=== PATIENT | female | born 1975 | race Caucasian/White ===

== ENCOUNTER → 2018-02-23 | Outpatient (CLI) | payer OTHER ==
--- NOTE | 2018-02-24 11:27 | RADIOLOGY IMAGING REPORT ---
FACILITY: [facility] [place] PATIENT NAME: LIVE LEE : [id number] MR: [id number] V: [id number] EXAM DATE: [id number] ORDERING PHYSICIAN: YARY JOHN TECHNOLOGIST: Hailey England PROCEDURE:BILATERAL DIGITAL SCREENING MAMMOGRAM WITH CAD ASSISTED INTERPRETATION & 3D TOMOSYNTHESIS COMPARISON:None. INDICATIONS:screening FINDINGS: Dense heterogeneous fibroglandular tissue is seen throughout the breasts. There is a cluster of round calcifications in the upper outer quadrant of the Right breast. Spot magnification view is recommended for further evaluation. There is also a focal area of increased density in the upper portion of the Left breast in the posterior 1/3 for which Spot compression view is recommended. DIAGNOSTIC CATEGORY 0--INCOMPLETE: NEED ADDITIONAL IMAGING EVALUATION. RECOMMENDATIONS: ADDITIONAL MAMMOGRAPHIC VIEWS REQUIRED: BILATERAL BREASTS. IMPRESSION: BIRADS 0: Incomplete. Additional views of both breasts recommended as described. Dictated by: Erendira Beasley M.D. on 02/23/2018 at 16:22 Transcribed by: NICANOR on 02/24/2018 at 7:58 Approved by: Erendira Beasley M.D. on 02/24/2018 at 11:27 [facility]
== END ==
LOC: MAMO 06:55
PROVIDERS: ATTEND Physician Assistant
DX: Z12.31 Encounter for screening mammogram for malignant neoplasm of breast (principal); R92.8 Other abnormal and inconclusive findings on diagnostic imaging of breast
CPT/HCPCS: 77063; 77067

== ENCOUNTER → 2018-03-14 | Outpatient (CLI) | payer OTHER ==
[~2018-03-14] MED LIST: IBUP800T37 PO; PER PO
--- NOTE | 2018-03-27 14:53 | RADIOLOGY IMAGING REPORT ---
FACILITY: [facility] PATIENT NAME: LIVE LEE : [id number] MR: [id number] V: [id number] EXAM DATE: [id number] ORDERING PHYSICIAN: YARY JOHN TECHNOLOGIST: Sara Cummings PROCEDURE:BILATERAL DIAGNOSTIC DIGITAL MAMMOGRAM AND LEFT BREAST ULTRASOUND. COMPARISON:None. INDICATIONS:FURTHER EVAL HISTORY: Indeterminate microcalcifications upper outer quadrant Right breast. Potential mass vs. island of glandular tissue Left axillary tail. Additional history: In discussion with this patient she has a very strong family history of breast cancer. Her sister was diagnosed at age 25 and 2 maternal aunts were diagnosed in their 20's or 30's. FINDINGS: The breast parenchyma is dense. Right breast: Spot compression magnification views were performed in the CC and mediolateral projections. There is a loose grouping of mildly pleomorphic microcalcifications located 10 o'clock Right breast Zone 2. There are no microcalcifications seen in the contralateral breast. These are moderately suspicious and warrant Stereotactic biopsy. Left breast: Left MLO Spot compression view, XCC view, and mediolateral view were performed. There is a persistent asymmetry measuring approximately 3.5 x 2.0cm diameter. The appearance favors an island of glandular tissue. Ultrasound over this area is completely normal with the exception of several tiny cysts. Normally I would recommend routine annual screening of Left breast but given the patient's family history a 6 month follow-up Left breast mammogram would be performed. DIAGNOSTIC CATEGORY 4--SUSPICIOUS FOR MALIGNANCY. RECOMMENDATIONS: STEREOTACTIC BREAST BIOPSY: RIGHT BREAST. IMPRESSION: BIRADS 4: Suspicious for malignancy. Right breast: BIRADS 4-Suspicious microcalcifications. Recommend Stereotactic biopsy Right breast. Left breast: BIRADS 3-Probably benign glandular tissue in the Left axillary tail. Recommend 6 month follow-up Left XCC and mediolateral view. Findings were discussed with the patient at the time of exam. I would also recommend genetic counseling. This patient has not been genetically tested and should be. If the microcalcifications of the Right breast prove malignant and patient is BRCA positive then further counseling suggested. Any future screenings should include MRI's. Dictated by: Barrington Figueredo M.D. on 03/14/2018 at 16:25 Transcribed by: NICANOR on 03/15/2018 at 8:46 Approved by: Erendira Beasley M.D. on 03/27/2018 at 14:52 [facility]
--- NOTE | 2018-03-27 14:53 | RADIOLOGY IMAGING REPORT ---
FACILITY: [facility] [place] PATIENT NAME: LIVE LEE : [id number] MR: [id number] V: [id number] EXAM DATE: [id number] ORDERING PHYSICIAN: YARY JOHN TECHNOLOGIST: Katiuska Stanley RDMS PROCEDURE:US LEFT BREAST COMPARISON:None. INDICATIONS:Asymmetry upper outer quadrant Left breast in the axillary tail. The appearance favors an island of glandular tissue. FINDINGS: Upper outer quadrant of the Left breast was interrogated by both the batch roller operator and myself. A tiny cyst wider than tall measuring 5 x 2mm noted. The Ultrasound otherwise normal in appearance. DIAGNOSTIC CATEGORY 2--BENIGN FINDING. RECOMMENDATIONS: ROUTINE MAMMOGRAM AND CLINICAL EVALUATION. IMPRESSION: BIRADS 2: Benign finding. The patient will be brought back for a 6 month follow-up mammogram given her extensive family history as detailed under the mammographic report. Dictated by: Barrington Figueredo M.D. on 03/14/2018 at 16:31 Transcribed by: NICANOR on 03/15/2018 at 8:55 Approved by: Erendira Beasley M.D. on 03/27/2018 at 14:52 [facility]
== END ==
LOC: MAMO 01:22
PROVIDERS: ATTEND Physician Assistant
DX: N60.02 Solitary cyst of left breast (principal); R92.1 Mammographic calcification found on diagnostic imaging of breast
CPT/HCPCS: 77062; 77066

== ENCOUNTER 2018-03-22 00:16 | Observation (INO) | payer OTHER ==
[2018-03-22] VITALS (10 sets, daily range): BP systolic 90–116; BP diastolic 51–66
[~2018-03-22] VITALS: Ht 165.1 cm; Wt 62.6 kg
[2018-03-22] MEDS ORDERED: ROPIVACAINE 0.2% 20 ML VIAL ONE (06:45)
[2018-03-22] MEDS ORDERED: MIDAZOLAM 2 MG/2 ML VIAL IVP PRN (09:25)
[2018-03-22] MEDS ORDERED: NORMOSOL R SOLN(*) 1000 ML BAG 1,000 ML IV PRN (09:25)
[2018-03-22] MEDS ORDERED: FAMOTIDINE 20 MG TAB PO ONE (09:25)
[2018-03-22] MEDS ORDERED: LIDOCAINE/SOD BICARB 8.4% SYR ID ONE (09:25)
[2018-03-22 09:49] LABS: PLATELET COUNT, AUTOMATED 257 K/uL (150-450)
[2018-03-22] MEDS ORDERED: cefOXitin/DEX(*) 2GM/50ML PREM 50 ML IVPB ONE (10:15)
[2018-03-22] MEDS ORDERED: PHENAZOPYRIDINE 200 MG TAB PO ONE (10:15)
[2018-03-22] MEDS ORDERED: ONDANSETRON 4 MG/2 ML VIAL ONE (11:22)
[2018-03-22] MEDS ORDERED: PROPOFOL EMUL(*) 10MG/ML 20 ML 20 ML ONE (11:22)
[2018-03-22] MEDS ORDERED: DEXAMETHASONE SOD PHOS 10MG/ML ONE (11:22)
[2018-03-22] MEDS ORDERED: ROCURONIUM BROM 10 MG/ML 10 ML ONE (11:30)
[2018-03-22] MEDS ORDERED: HYDROmorphone HCL 2 MG/ML SDV ONE (11:48)
[2018-03-22] MEDS ORDERED: SUGAMMADEX SOD 200 MG/2 ML SDV ONE (13:55)
[2018-03-22] MEDS ORDERED: PROMETHAZINE 25 MG/ML 1 ML AMP IVP PRN (14:15)
[2018-03-22] MEDS ORDERED: INFLUENZA VIRUS VAC 0.5 ML SYR IM ONE (14:15)
[2018-03-22] MEDS ORDERED: SIMETHICONE 80 MG CHEW CHEW PRN (14:15)
[2018-03-22] MEDS ORDERED: ONDANSETRON 4 MG/2 ML VIAL IV PRN (14:15)
[2018-03-22] MEDS ORDERED: ACETAMINOPHEN 325 MG TAB PO PRN (14:15)
[2018-03-22] MEDS ORDERED: ZOLPIDEM TARTRATE 10 MG TAB PO PRN (14:15)
[2018-03-22] MEDS ORDERED: HYDROmorphone HCL 2 MG TAB PO PRN (14:15)
--- NOTE | 2018-03-22 14:36 | Post Operative Note ---
Operative Note - INDEPENDENT LIVING SPECIALIST Operative Day Date: Mar 22, 2018 Time: 14:23 Physicians Surgeon: Myranda Shipping And Receiving Coordinator: Isela Anesthesia: GETA Diagnosis Pre-Op Diagnosis: Enlarged uterus Anemia, iron defeciency Deep dyspareunia Menorrhagia Post-Op Diagnosis: same Procedure Findings: normal ovaries, clips within the mesosalpinx Procedure(s): RATLH bilateral salpingectomy Cystoscopy Specimen Removed:(Maybe N/A): uterus, tubes Complications: none #[id number] Fluids Fluids: 1500 ml Estimated Blood Loss: 10 Dictated Date OP Note Dictated: Mar 22, 2018 Time OP Note Dictated: 14:25 Copies to: SARAI GARZA MD, TRAVIS MD Mar 22, 2018 14:36
[2018-03-22] MEDS ORDERED: fentaNYL CITR 100 MCG/2 ML AMP ONE (14:43)
--- NOTE | 2018-03-22 15:53 | OPERATIVE REPORT 1 ---
EVENT DATE: March 22, 2018 SURGEON: Kyle Whitmore MD ANESTHESIOLOGIST: Nabil Johnson MD ANESTHESIA: General endotracheal. FORENSIC SPECIALIST: Jaime Weiss MD PREOPERATIVE DIAGNOSES 1. Enlarged uterus. 2. Anemia, iron deficiency. 3. Deep dyspareunia. 4. Menorrhagia. POSTOPERATIVE DIAGNOSES 1. Enlarged uterus. 2. Anemia, iron deficiency. 3. Deep dyspareunia. 4. Menorrhagia. PROCEDURE PERFORMED Robotic-assisted total laparoscopic hysterectomy. ESTIMATED BLOOD LOSS 10 mL FLUIDS Crystalloid 1500 mL IV. FINDINGS Enlarged uterus. Normal-appearing ovaries bilaterally. The tubes had previously been worked on with surgical clips present within the mesosalpinx. Adhesion of the descending colon to the left adnexa and pelvic sidewall. PROCEDURE IN DETAIL The patient was brought to the operating room with a working IV, placed in the dorsal supine position, and placed under general endotracheal anesthesia. She moved to the dorsal lithotomy position and prepped and draped in the usual sterile fashion. A weighted speculum was placed in the vagina. The cervix was grasped on the anterior lip with a single-toothed tenaculum. It was sounded, retroverted to a depth of 8.5 cm, and cervix was carefully dilated to size 4 Hegar dilator. A large VCare uterine manipulator was selected and assembled. The VCare cup was approximated against the cervix with the device inside the uterus and bulb inflated. The cup was sutured to the cervix, and the pneumo preventer cup was approximated against the colpotomy cup, and the bolt was tightened to secure it in place. Rehman catheter was placed, and gloves were changed. We proceeded laparoscopically by measuring approximately 12 cm from the target anatomy to an area approximately 2 cm above the umbilicus. The area was marked and infiltrated with 0.2% Naropin. An 8 mm stab incision was made, and the anterior abdominal wall was elevated while the Veress needle was passed through this incision into the abdomen. A pneumoperitoneum was created to an intra-abdominal pressure of 20 mmHg. The Veress needle was then removed. An 8 mm robotic bladeless trocar was passed through this incision under direct visualization with the scope. The abdomen and pelvis were surveyed with the above findings noted. Additional ports were marked out 8 cm distance in the transverse line from the umbilical location with one robotic trocar 8 mm left of the midline and two right of the midline, both 8 cm in spacing. An additional tiler's assistant port was placed lateral to the left robotic port and 11 mm in size. Once each port site was infiltrated with 0.2% Naropin once skin incisions were made, the ports were placed under direct visualization with the scope with bladeless trocars and without incident. The patient was then moved to the Trendelenburg position, and bowel was swept away from the pelvis. The abdomen and pelvis were surveyed with the above findings noted. The robot was then brought in over the patient, and the scope port was docked. The scope was aimed at the target anatomy. The targeting procedure was performed and completed. Each additional port was docked successfully, and instruments were attached. Initially, port #3 would not accept an instrument, and it was found there was a defective sterile drape over the instrument milk receiver. This was changed out. The second arm received an instrument just fine. Each instrument was then inserted into the patient's pelvis under direct visualization to the target anatomy. Once this had been completed, each port was burped to release any tension. At this point, I scrubbed out and presented to the console. With the robot, the procedure proceeded as follows: The right fallopian tube was grasped and elevated. The mesosalpinx was dissected with the vessel sealer to the utero-ovarian ligament. The utero-ovarian ligament was then cauterized and transected with the vessel sealer up to the round ligament, which was then cauterized and transected. The broad ligament was then into anterior and posterior leaflets. The anterior leaflet was dissected along the anterior uterus over the bladder to the area where the VCare cup was palpable beneath. Uterine vessels were further skeletonized in this location. The posterior peritoneum was dissected down to the uterosacral ligament. Once the uterine vasculature had been skeletonized, it was cauterized at a right angle with the vessel sealer times three, and then using straight parallel bites along the length of the uterus down to the cervix, the vascular pedicle was dissected away. Once we reached the area of the VCare cup, we proceeded to the contralateral side. In a likewise fashion, the fallopian tube was dissected away from the ovary with the vessel sealer. The utero-ovarian ligament was cauterized and transected with the vessel sealer as well as the round ligament. The broad ligament was then into anterior and posterior leaflets. The anterior leaflet continued its anterior dissection to meet the dissection from the contralateral side, and the posterior leaflet was dissected down to the uterosacral ligaments. The uterine vasculature was further skeletonized. It was then in a likewise fashion taken down, first with a bite perpendicular to the vessels, followed by parallel bites along the length of the cervix to the VCare cup. At this point, a colpotomy was performed anteriorly, and this was followed circumferentially around the entire cervix through the uterosacral ligaments on both sides and then freeing the uterus entirely from its vaginal attachment. It was removed vaginally, and the instruments were then changed to my needle grasper and a long fenestrated grasper. The vaginal closure was performed as follows: An 0 Vicryl was used to perform angled sutures of the vaginal mucosa to the ipsilateral uterosacral ligament in a [id number] fashion. This was tied down and tagged. The contralateral side received a similar stitch, and the vaginal closure was performed with an 0 V-Loc PDS suture in a running unlocking fashion. Upon completion, the entire vaginal cuff was hemostatic. It was irrigated and suctioned dry. There were no visible bleeders. Therefore, this portion of the procedure was terminated. All instruments were removed from the patient's abdomen. The robot was undocked and taken away. Laparoscopically, the 11 mm port was closed with a Jose Luis-Anoop suture closure device, and then the pneumoperitoneum was suctioned out. All trocars were removed, and skin incisions were repaired with 4-0 Monocryl simple subdermal. Cystoscopy was then performed. The bladder was inspected in its entirety as well as the urethra with no visible lacerations or injuries. Both ureteral orifices were observed to have excellent urine jets, confirming ureteral patency. Therefore, the bladder was drained. There were noted to be two small vaginal lacerations that were apparently made with removal of the uterus. This received one tonkps-zl-scbtw stitch for each laceration, and excellent hemostasis was then observed. No further issues were noted. The patient was returned to the supine position, awakened from general anesthesia in stable condition, and taken to recovery. Sponge, lap, needle, and instrument counts were all correct times three. SHI
[2018-03-22] MEDS: KETOROLAC 30 MG/ML VIAL IVP SCH (17:29)
[2018-03-22] MEDS: ACETAMINOPHEN(*)1000 MG/100 ML 100 ML IVPB SCH (17:29)
[2018-03-22] MEDS: DLR(*) 1000 ML BAG 1,000 ML IV PRN (17:30)
[2018-03-22] MEDS: FAMOTIDINE 20 MG TAB PO SCH (21:23)
[2018-03-22] MEDS: DOCUSATE CALCIUM 240 MG CAP PO SCH (21:23)
[2018-03-23] MEDS: DLR(*) 1000 ML BAG 1,000 ML IV PRN (00:28)
[2018-03-23 00:30] VITALS: BP 108/63
[2018-03-23] MEDS: KETOROLAC 30 MG/ML VIAL IVP SCH ×2 (00:30→05:58)
[2018-03-23] MEDS: ACETAMINOPHEN(*)1000 MG/100 ML 100 ML IVPB SCH ×2 (00:31→05:59)
[2018-03-23 04:20] VITALS: BP 104/66
[2018-03-23 06:06] LABS: PLATELET COUNT, AUTOMATED 189 K/uL (150-450)
--- NOTE | 2018-03-23 06:54 | OB/GYN Progress Note ---
OB Subjective Progress Notes Subjective Feeling well. Reports very little pain. GI: POS Nausea (last night, resolved this AM) : Voiding Well Pain: Mild Neurological: No Headache OB Objective Physical Exam Vital Signs Date Time Temp Pulse Resp B/P (MAP) Pulse Ox O2 Delivery O2 Flow Rate FiO2 03/23/18 04:20 98.5 49 16 104/66 (79) 93 Room Air General Appearance: Alert/Awake/No Acute Distress Neurological: No Gross deficits Cardiovascular: Normal Rhythm & Peripheral Pulses Respiratory: No Respiratory Distress, Clear to Auscultation Abdomen: Soft, Non-Tender, Non-Distended, Non-Tender Incision: Clean, Dry, Intact Integumentary: Skin Intact without Lesions or Rash Psychological: Alert & Oriented X3, Appropriate Mood & Affect Result Diagram: 03/23/18 0553 Assessment and Plan SENIOR ACCOUNTING ASSOCIATE Plan: Routine Post-Op Care, Discharge Home Today Problems: (1) Status post robot-assisted surgical procedure (2) Status post laparoscopic hysterectomy Assessment & Plan: Reviewed the surgery with her. Questions answered. Home later today. F/U at 2 weeks and 6 weeks. Precautions reviewed and activity restrictions. SARAI GARZA MD Mar 23, 2018 06:54
[2018-03-23] MEDS ORDERED: IBUP800T37 PO (06:58)
[2018-03-23] MEDS ORDERED: PER PO (06:58)
--- NOTE | 2018-03-23 07:00 | OB/GYN Discharge Summary ---
Discharge Summary Reason for Hosp/Final Diag: (1) Status post robot-assisted surgical procedure (2) Status post laparoscopic hysterectomy Hospital Course & Plan: Reviewed the surgery with her. Questions answered. Home later today. F/U at 2 weeks and 6 weeks. Precautions reviewed and activity restrictions. Lates Vital Signs Vital Signs Date Time Temp Pulse Resp B/P (MAP) Pulse Ox O2 Delivery O2 Flow Rate FiO2 03/23/18 04:20 98.5 49 16 104/66 (79) 93 Room Air Weight (Pounds): 138 Result Diagram: 03/23/18 0553 Hematology Test 03/22/18 09:43 03/23/18 05:53 Peripheral Blood Smear No Y/N Human Chorionic Gonadotropin, Qual Negative (NEGATIVE) Red Blood Count 4.13 M/uL (4.17-5.56) Mean Corpuscular Volume 68.7 fL (80.0-96.0) Mean Corpuscular Hemoglobin 22.4 pg (26.0-33.0) Mean Corpuscular Hemoglobin Concent 32.7 g/dL (32.0-36.0) Red Cell Distribution Width 16.4 % (11.5-14.5) Mean Platelet Volume 8.6 fL (7.2-11.1) Neutrophils (%) (Auto) 69.6 % (39.4-72.5) Lymphocytes (%) (Auto) 21.8 % (17.6-49.6) Monocytes (%) (Auto) 7.5 % (4.1-12.4) Eosinophils (%) (Auto) 0.4 % (0.4-6.7) Basophils (%) (Auto) 0.7 % (0.3-1.4) Nucleated RBC Relative Count (auto) 0.1 /100WBC Neutrophils # (Auto) 4.9 K/uL (2.0-7.4) Lymphocytes # (Auto) 1.5 K/uL (1.3-3.6) Monocytes # (Auto) 0.5 K/uL (0.3-1.0) Eosinophils # (Auto) 0.0 K/uL (0.0-0.5) Basophils # (Auto) 0.1 K/uL (0.0-0.1) Nucleated RBC Absolute Count (auto) 0.01 K/uL Chemistry Test 03/22/18 09:43 03/23/18 05:53 Peripheral Blood Smear No Y/N Human Chorionic Gonadotropin, Qual Negative (NEGATIVE) White Blood Count 7.1 k/uL (4.5-11.0) Red Blood Count 4.13 M/uL (4.17-5.56) Hemoglobin 9.3 g/dL (12.0-16.0) Hematocrit 28.3 % (34.0-47.0) Mean Corpuscular Volume 68.7 fL (80.0-96.0) Mean Corpuscular Hemoglobin 22.4 pg (26.0-33.0) Mean Corpuscular Hemoglobin Concent 32.7 g/dL (32.0-36.0) Red Cell Distribution Width 16.4 % (11.5-14.5) Platelet Count 189 K/uL (150-450) Mean Platelet Volume 8.6 fL (7.2-11.1) Neutrophils (%) (Auto) 69.6 % (39.4-72.5) Lymphocytes (%) (Auto) 21.8 % (17.6-49.6) Monocytes (%) (Auto) 7.5 % (4.1-12.4) Eosinophils (%) (Auto) 0.4 % (0.4-6.7) Basophils (%) (Auto) 0.7 % (0.3-1.4) Nucleated RBC Relative Count (auto) 0.1 /100WBC Neutrophils # (Auto) 4.9 K/uL (2.0-7.4) Lymphocytes # (Auto) 1.5 K/uL (1.3-3.6) Monocytes # (Auto) 0.5 K/uL (0.3-1.0) Eosinophils # (Auto) 0.0 K/uL (0.0-0.5) Basophils # (Auto) 0.1 K/uL (0.0-0.1) Nucleated RBC Absolute Count (auto) 0.01 K/uL Condition: Improved Discharge: Home, Self Assisted Meds Active Scripts Oxycodone/Acetaminophen (OXYCODONE/ACETAMINOPHEN 5MG/325 MG) 5 Mg/325 Mg Tab, 1- 2 TAB PO Q4H Y for PAIN, #14 TAB 0 Refills Prov:KYLE WHITMORE MD 03/23/18 Follow up Referrals: LEAN MANUFACTURING LEADER - In Two Weeks @ [facility] with Kyle Whitmore Md Follow up with: Dr. Whitmore [phone] Follow up in: 2 wks PO Discharge Diet: As Tolerates Discharge Activity: As Tolerates, No Heavy Lifting x 6 wks, No Heavy Lifting > 10lb, Pelvic Rest Copies to: KYLE WHITMORE MD, TRAVIS MD Mar 23, 2018 07:00
[2018-03-23] MEDS: DOCUSATE CALCIUM 240 MG CAP PO SCH (08:56)
[2018-03-23] MEDS: FAMOTIDINE 20 MG TAB PO SCH (08:56)
[2018-03-23 09:00] VITALS: BP 117/59
[2018-03-23] MEDS ORDERED: IBUPROFEN 800 MG TAB PO PRN (12:00)
== END 2018-03-23 06:58 | disposition home or self-care (01) ==
LOC: OR 00:16 → PED 15:55 → INTOOBSV 15:55
PROVIDERS: ADMIT Obstetrics & Gynecology; ATTEND Obstetrics & Gynecology
DX: Q51.9 Congenital malformation of uterus and cervix, unspecified (principal); D50.9 Iron deficiency anemia, unspecified; N94.12 Deep dyspareunia; N92.0 Excessive and frequent menstruation with regular cycle
CPT/HCPCS: 36415; 58571; 84703; 85025; 88307; G0378; J0131; J0694; J1100; J1170; J1885; J2250; J2405; J2704; J2795; J3010; S2900

== ENCOUNTER 2018-04-03 11:39 | Outpatient (RCR) | payer OTHER ==
[2018-04-03 12:11] LABS: INR 0.99
--- NOTE | 2018-04-05 16:08 | RADIOLOGY IMAGING REPORT ---
FACILITY: [facility] [place] PATIENT NAME: LIVE LEE : [id number] MR: [id number] V: [id number] EXAM DATE: [id number] ORDERING PHYSICIAN: SARAI GARZA TECHNOLOGIST: Hailey England PROCEDURE: STEREOTACTIC RIGHT BREAST BIOPSY COMPARISON: None. INDICATIONS: Indeterminate calcifications upper outer quadrant of the Right breast. FINDINGS: Informed consent was obtained. The patient was placed prone on the stereotactic biopsy table. The indeterminate calcifications upper outer quadrant of the Right breast were imaged with digital stereo pair images of the Right breast. The Right breast was prepped in the usual sterile fashion. Local anesthesia was accomplished with 1% lidocaine. Deep anesthesia was accomplished with 1% lidocaine with epinephrine. Utilizing stereotactic guidance 12 9 Gauge vacuum assisted core biopsies were obtained through the indeterminate calcifications in the upper outer quadrant of the Right breast. The specimen radiograph did demonstrate numerous calcifications and numerous core samples. A biopsy clip was placed in the biopsy site which is seen on the post stereotactic biopsy mammogram adjacent to the microcalcifications. The procedure was accomplished without apparent complication. CONCLUSION: Successful stereotactic biopsy of the Right breast. Pathology results are pending. Dictated by: Erendira Beasley M.D. on 04/05/2018 at 15:03 Approved by: Erendira Beasley M.D. on 04/05/2018 at 16:07 [facility]
--- NOTE | 2018-04-05 16:08 | RADIOLOGY IMAGING REPORT ---
FACILITY: [facility] [place] PATIENT NAME: LIVE LEE : [id number] MR: [id number] V: [id number] EXAM DATE: ORDERING PHYSICIAN: SARAI GARZA TECHNOLOGIST: Hailey England PROCEDURE: BREAST SPECIMEN COMPARISON: None. INDICATIONS: FINDINGS: Numerous core biopsies from Today's stereotactic breast biopsy demonstrate multiple small round calcifications and multiple core samples. CONCLUSION: As above. Dictated by: Erendira Beasley M.D. on 04/05/2018 at 15:05 Transcribed by: NICANOR on 04/05/2018 at 15:58 Approved by: Erendira Beasley M.D. on 04/05/2018 at 16:07 [facility]
--- NOTE | 2018-04-05 16:08 | RADIOLOGY IMAGING REPORT ---
FACILITY: [facility] [place] PATIENT NAME: LIVE LEE : [id number] MR: [id number] V: [id number] EXAM DATE: [id number] ORDERING PHYSICIAN: SARAI GARZA TECHNOLOGIST: Hailey England This report includes an Addendum and supersedes previous reports for this exam. PROCEDURE:RIGHT DIGITAL DIAGNOSTIC MAMMOGRAM COMPARISON:None. INDICATIONS:CLIP PLACEMENT FINDINGS: Stereotactic biopsy clip is seen in the upper outer quadrant of the Right breast adjacent to the indeterminate microcalcifications. Pathology results are pending. IMPRESSION: 1. Dictated by: Erendira Beasley M.D. on 04/05/2018 at 15:04 Transcribed by: NICANOR on 04/05/2018 at 15:36 Approved by: Erendira Beasley M.D. on 04/05/2018 at 16:07 [facility] ADDENDUM: FINDINGS: The pathology results from the Stereotactic biopsy of the Right breast performed on 04/05/18 are consistent with fibrocystic change with no evidence of malignancy. A 6 month follow-up Right mammogram is recommended to document stability of the residual calcifications in the upper outer quadrant of the Right breast. DIAGNOSTIC CATEGORY 3--PROBABLY BENIGN FINDING. RECOMMENDATIONS: A 6 month follow-up Right mammogram is recommended to document stability of the residual calcifications in the upper outer quadrant of the Right breast. SIX MONTH FOLLOW-UP DIAGNOSTIC MAMMOGRAM: RIGHT BREAST. Dictated by: Erendira Beasley M.D. on 04/11/2018 at 10:45 Transcribed by: NICANOR on 04/11/2018 at 10:52 Approved by: Erendira Beasley M.D. on 04/11/2018 at 17:27 [facility]
== END 2018-04-05 18:00 | disposition home or self-care (01) ==
LOC: LAB 11:39
PROVIDERS: ATTEND Obstetrics & Gynecology
DX: R92.8 Other abnormal and inconclusive findings on diagnostic imaging of breast (principal)
CPT/HCPCS: 19081; 36415; 77061; 77065; 85610; 88305; 88344

== ENCOUNTER 2018-04-18 08:43 | Emergency (ER) | payer OTHER ==
--- NOTE | 2018-04-18 08:52 | ER Report ---
History and Physical Time Seen By MD: 08:52 Hx. of Stated Complaint: PT PRESENTS WITH AN ALLERGIC REACTION, SINCE YESTERDAY EVENING. FEELS WORSE TODAY WITH HIVES AND LIP SWELLING. NO BREATHING DIFFICULTY, OR THROAT SWELLING HPI/ROS 42-year-old female who has been recently treated with antibiotics for a urinary tract infection presents to the emergency department with a diffuse urticarial rash. She was placed on Bactrim for urinary tract infection approximately a week and a half ago. She did not tolerate that medication and was only on it for 2 days. She does not remember what subsequent medication was that she was given. She completed that course on April 14. Yesterday she developed a pruritic diffuse rash to her extremities, and also to her left upper lip. Other than her lip there is no other mucous membrane involvement. She otherwise feels extremely well. No fever chills. No travel. No rash on her palms or soles. The symptoms are somewhat improved with Benadryl that she has been taking at home for the past 24 hours. Allergies: Coded Allergies: Sulfa (Sulfonamide Antibiotics) (Verified Allergy, Intermediate, 04/18/18) Home Meds Active Scripts Prednisone (PREDNISONE) 20 Mg Tablet, 20 MG PO BID for 5 Days, #10 TAB Prov:DON SANCHEZ MD 04/18/18 Discontinued Scripts Oxycodone/Acetaminophen (OXYCODONE/ACETAMINOPHEN 5MG/325 MG) 5 Mg/325 Mg Tab, 1- 2 TAB PO Q4H Y for PAIN, #14 TAB 0 Refills Prov:SARAI GARZA MD 03/23/18 Ibuprofen (IBUPROFEN) 800 Mg Tablet, 800 MG PO Q8H Y for PAIN, #30 TAB 0 Refills Prov:SARAI GARZA MD 03/23/18 Reviewed Nurses Notes: Yes Old Medical Records Reviewed: Yes Hx Smoking: No Smoking Status: Never Smoker Exposure to Second Hand Smoke?: No Hx Alcohol Use: No Constitutional Vital Sign - Last 24 Hours 04/18/18 04/18/18 04/18/18 04/18/18 08:46 08:46 09:00 09:13 Temp 98.6 Pulse 84 78 Resp 20 B/P (MAP) 114/74 114/74 (87) 116/63 (80) Pulse Ox 99 95 O2 Delivery Room Air 8/14/18 8/14/18 09:18 09:30 Pulse 84 B/P (MAP) 136/60 (85) Pulse Ox 98 Physical Exam General Appearance: Alert and oriented in no apparent distress Eyes: Pupils equal and round no injection. Respiratory: Chest is non tender, lungs are clear to auscultation. Cardiac: regular rate and rhythm Gastrointestinal: Abdomen is soft and non tender, no masses, bowel sounds normal. Neck: Neck is supple and non tender. Extremities have full range of motion and are non tender. Skin: There is a diffuse, blanching, urticarial rash on her upper extremities, neck, and face DIFFERENTIAL DIAGNOSIS: After history and physical exam differential diagnosis was considered for allergic reaction, erythema multiforme, Burks-Cayden's, tick disease Medical Decision Making ED Course/Re-evaluation ED Course Very well-appearing otherwise healthy female with a diffuse urticarial rash after completing a 10 day course of an unknown antibiotic for a urinary tract infection. Although she has one lesion to her upper lip, this is not consistent with a Burks-Cayden syndrome. Her oropharynx is clear without edema. There is no change in voice. No rash to the palms and soles. No fever chills. Had a discussion on the source of the rash. Source at this time, but I do not think that this is a concerning rash. I told her she can take Benadryl and Pepcid for symptomatic relief if needed. I gave her 1st dose of prednisone in the emergency department as well as a five-day course of prednisone to continue. I gave her strict return precautions. Decision to Disposition Date: Apr 18, 2018 Decision to Disposition Time: 09:36 Depart Departure Latest Vital Signs Vital Signs Date Time Temp Pulse Resp B/P (MAP) Pulse Ox O2 Delivery O2 Flow Rate FiO2 04/18/18 09:30 136/60 (85) 04/18/18 09:18 84 98 04/18/18 08:46 98.6 20 Room Air Impression: Primary Impression: Urticaria Condition: Improved Disposition: HOME OR SELF-CARE Referrals: YARY JOHN (PCP) New Scripts Prednisone (PREDNISONE) 20 Mg Tablet 20 MG PO BID for 5 Days, #10 TAB Prov: DON SANCHEZ MD 04/18/18 DON SANCHEZ MD Apr 18, 2018 08:52
[2018-04-18] MEDS ORDERED: FAMOTIDINE 20 MG TAB PO ONE (08:55)
[2018-04-18] MEDS ORDERED: diphenhydrAMINE 25 MG CAP PO ONE (08:55)
[2018-04-18] MEDS ORDERED: predniSONE 20 MG TAB PO ONE (08:55)
[2018-04-18 09:30] VITALS: BP 136/60
[2018-04-18] MEDS ORDERED: PRED20TA6 PO (09:38)
== END 2018-04-18 09:41 | disposition home or self-care (01) ==
LOC: ER 08:52
DX: L50.9 Urticaria, unspecified (principal)
CPT/HCPCS: 99283; J7512; Q0163

== ENCOUNTER 2018-04-20 03:35 | Emergency (ER) | payer OTHER ==
[~2018-04-20 03:35] MED LIST changes: +PRED20TA6 PO
[2018-04-20] MEDS ORDERED: ANAPHYLAXIS KIT 1 EA ONE (03:41)
--- NOTE | 2018-04-20 03:48 | ER Report ---
History and Physical Time Seen By MD: 03:48 Hx. of Stated Complaint: facial edema and generalized hives HPI/ROS CHIEF COMPLAINT: possible allergic reaction HISTORY OF PRESENT ILLNESS: This is a 42 year old female. She has had red rash that appears like an allergic reaction with large macular areas that are itching , generalized. She also has had some swelling around the left side of her face extending into the upper left lip area with associated swelling. Feels like her throat is tight and having some difficulty with swallowing associated with this as well. Has been on Benadryl and Pepcid as well as a prescription for Prednisone 20mg twice a day given from the ER at her last visit 2 days ago and not helping. This all seemed to start after use of an antibiotic, which had a reaction, but was stopped. Was placed on a new antibiotic, which she finished and had the current outbreak once finished with the new antibiotic. No other new medicines. They have been trying to see if there is anything else new in her regimen of medicines or any new soaps, chemicals, etc, but have not been able to come up with anything that would have caused this. She has no chest pain. Feels like maybe a little trouble breathing associated with the thick and swollen feeling in her throat. Allergies: Coded Allergies: Sulfa (Sulfonamide Antibiotics) (Verified Allergy, Intermediate, 04/18/18) Home Meds Active Scripts Methylprednisolone (METHYLPREDNISOLONE) 4 Mg Tab.ds.pk, 4 MG PO DIRECTED, #1 PACK 0 Refills Prov:KERVIN ROGER MD 04/20/18 Prednisone (PREDNISONE) 20 Mg Tablet, 20 MG PO BID for 5 Days, #10 TAB Prov:DON SANCHEZ MD 04/18/18 Reported Medications Famotidine (PEPCID) 20 Mg Tablet, 20 MG PO BID, #10 TAB 04/20/18 Diphenhydramine Hcl (BENADRYL) 25 Mg Capsule, 25 MG PO Q6-8H, CAPSULE 04/20/18 Discontinued Scripts Oxycodone/Acetaminophen (OXYCODONE/ACETAMINOPHEN 5MG/325 MG) 5 Mg/325 Mg Tab, 1- 2 TAB PO Q4H Y for PAIN, #14 TAB 0 Refills Prov:SARAI GARZA MD 03/23/18 Ibuprofen (IBUPROFEN) 800 Mg Tablet, 800 MG PO Q8H Y for PAIN, #30 TAB 0 Refills Prov:SARAI GARZA MD 03/23/18 Past Medical/Surgical History Hysterectomy, tubal repair in 2005 Reviewed Nurses Notes: Yes Hx Smoking: No Smoking Status: Never Smoker Exposure to Second Hand Smoke?: No Hx Substance Use Disorder: No Hx Alcohol Use: No Constitutional Vital Sign - Last 24 Hours 04/20/18 04/20/18 04/20/18 04/20/18 03:40 03:41 03:50 04:05 Temp 99.1 Pulse 74 79 62 Resp 18 B/P (MAP) 126/83 (97) 126/83 Pulse Ox 100 97 94 O2 Delivery Room Air 04/20/18 04/20/18 04/20/18 04/20/18 04:09 04:20 04:30 04:35 Pulse 72 58 B/P (MAP) 128/79 (95) 117/77 (90) Pulse Ox 95 96 04/20/18 04/20/18 04/20/18 04/20/18 04:50 04:55 05:00 05:10 Pulse 70 ??? 61 B/P (MAP) ???/??? (1665) Pulse Ox 97 100 04/20/18 04/20/18 04/20/18 04/20/18 05:25 05:30 05:40 05:55 Pulse 62 56 72 B/P (MAP) 118/63 (81) Pulse Ox 96 99 100 04/20/18 04/20/18 04/20/18 04/20/18 06:00 06:10 06:25 06:30 Pulse ??? 103 B/P (MAP) 109/67 (81) 130/64 (86) Pulse Ox 99 04/20/18 06:40 Pulse ??? Physical Exam General Appearance: The patient is alert. No acute distress. Eyes: Pupils are equal, round. No pallor, injection or icterus. ENT: Mucous membranes are moist. Normal oral mucosa. Posterior oropharynx is normal. Normal nasal mucosa. No oral lesions noted. Neck: Supple and non tender. No lymphadenopathy. Respiratory: Breathing easily and unlabored. Lungs are clear to auscultation. There are no retractions or accessory muscle use. Cardiovascular: Regular rate and rhythm. No murmurs, gallops or rubs. Normal capillary refill. Neurological: Alert and oriented x3. No focal neurologic deficits Skin: Warm and dry. has generalized maculopapular rash, confluent/patches which look urticarial in nature. Has some swelling in face near and including left upper lip. Musculoskeletal: Extremities are nontender. DIFFERENTIAL DIAGNOSIS: After history and physical exam, differential diagnosis was considered for what appears to be ongoing allergic reaction. We'll go ahead and start an IV and give Benadryl, Pepcid, and Solu-Medrol. Medical Decision Making Data Points Result Diagram: 04/20/18 0504 04/20/18 0504 Laboratory Hematology Test 04/20/18 05:04 Red Blood Count 5.03 M/uL (4.17-5.56) Mean Corpuscular Volume 67.8 fL (80.0-96.0) Mean Corpuscular Hemoglobin 21.5 pg (26.0-33.0) Mean Corpuscular Hemoglobin Concent 31.7 g/dL (32.0-36.0) Red Cell Distribution Width 16.9 % (11.5-14.5) Mean Platelet Volume 8.1 fL (7.2-11.1) Neutrophils (%) (Auto) 84.2 % (39.4-72.5) Lymphocytes (%) (Auto) 10.8 % (17.6-49.6) Monocytes (%) (Auto) 4.9 % (4.1-12.4) Eosinophils (%) (Auto) 0.0 % (0.4-6.7) Basophils (%) (Auto) 0.1 % (0.3-1.4) Nucleated RBC Relative Count (auto) 0.0 /100WBC Neutrophils # (Auto) 10.3 K/uL (2.0-7.4) Lymphocytes # (Auto) 1.3 K/uL (1.3-3.6) Monocytes # (Auto) 0.6 K/uL (0.3-1.0) Eosinophils # (Auto) 0.0 K/uL (0.0-0.5) Basophils # (Auto) 0.0 K/uL (0.0-0.1) Nucleated RBC Absolute Count (auto) 0.00 K/uL Peripheral Blood Smear Yes Y/N Erythrocyte Sedimentation Rate 6 mm/HOUR (0-20) Sodium Level 139 mmol/L (137-145) Potassium Level 3.9 mmol/L (3.5-5.0) Chloride Level 106 mmol/L (98-107) Carbon Dioxide Level 24 mmol/L (22-31) Blood Urea Nitrogen 10 mg/dl (7-18) Creatinine 0.70 mg/dl (0.52-1.04) Glomerular Filtration Rate Calc > 60.0 Random Glucose 117 mg/dl (75-110) Calcium Level 9.7 mg/dl (8.4-10.2) Total Bilirubin 0.4 mg/dl (0.2-1.3) Aspartate Amino Transf (AST/SGOT) 24 U/L (0-35) Alanine Aminotransferase (ALT/SGPT) 26 U/L (0-56) Alkaline Phosphatase 86 U/L (0-126) Total Protein 7.0 g/dl (6.3-8.2) Albumin 4.2 g/dl (3.5-5.0) Chemistry Test 04/20/18 05:04 White Blood Count 12.3 k/uL (4.5-11.0) Red Blood Count 5.03 M/uL (4.17-5.56) Hemoglobin 10.8 g/dL (12.0-16.0) Hematocrit 34.1 % (34.0-47.0) Mean Corpuscular Volume 67.8 fL (80.0-96.0) Mean Corpuscular Hemoglobin 21.5 pg (26.0-33.0) Mean Corpuscular Hemoglobin Concent 31.7 g/dL (32.0-36.0) Red Cell Distribution Width 16.9 % (11.5-14.5) Platelet Count 336 K/uL (150-450) Mean Platelet Volume 8.1 fL (7.2-11.1) Neutrophils (%) (Auto) 84.2 % (39.4-72.5) Lymphocytes (%) (Auto) 10.8 % (17.6-49.6) Monocytes (%) (Auto) 4.9 % (4.1-12.4) Eosinophils (%) (Auto) 0.0 % (0.4-6.7) Basophils (%) (Auto) 0.1 % (0.3-1.4) Nucleated RBC Relative Count (auto) 0.0 /100WBC Neutrophils # (Auto) 10.3 K/uL (2.0-7.4) Lymphocytes # (Auto) 1.3 K/uL (1.3-3.6) Monocytes # (Auto) 0.6 K/uL (0.3-1.0) Eosinophils # (Auto) 0.0 K/uL (0.0-0.5) Basophils # (Auto) 0.0 K/uL (0.0-0.1) Nucleated RBC Absolute Count (auto) 0.00 K/uL Peripheral Blood Smear Yes Y/N Erythrocyte Sedimentation Rate 6 mm/HOUR (0-20) Glomerular Filtration Rate Calc > 60.0 Calcium Level 9.7 mg/dl (8.4-10.2) Total Bilirubin 0.4 mg/dl (0.2-1.3) Aspartate Amino Transf (AST/SGOT) 24 U/L (0-35) Alanine Aminotransferase (ALT/SGPT) 26 U/L (0-56) Alkaline Phosphatase 86 U/L (0-126) Total Protein 7.0 g/dl (6.3-8.2) Albumin 4.2 g/dl (3.5-5.0) ED Course/Re-evaluation Clinical Indication for ER IV: IV Access ED Course No change with the Solu-Medrol, Pepcid and Benadryl. Labs obtained and unremarkable. Mild elevated white count, normal ESR and CRP. Trial of Decadron IV and will give an EpiPen 0.3mg dose to see if this will break the cycle and give some relief. She had good relief after this and was discharged home with instructions to see an manager integrity for further evaluation. Decision to Disposition Date: Apr 20, 2018 Decision to Disposition Time: 06:30 Depart Departure Latest Vital Signs Vital Signs Date Time Temp Pulse Resp B/P (MAP) Pulse Ox O2 Delivery O2 Flow Rate FiO2 04/20/18 06:40 ??? 04/20/18 06:30 130/64 (86) 04/20/18 06:25 99 04/20/18 03:41 99.1 18 Room Air Impression: Primary Impression: Urticaria Condition: Improved Disposition: HOME OR SELF-CARE Referrals: YARY JOHN (PCP) New Scripts Methylprednisolone (METHYLPREDNISOLONE) 4 Mg Tab.ds.pk 4 MG PO DIRECTED, #1 PACK 0 Refills Prov: KERVIN ROGER MD 04/20/18 Patient Instructions: General Allergic Reaction (ED), Urticaria (ED) Additional Instructions: Stop the Prednisone and start the Medrol Dosepack. Keep taking the Benadryl, but increase to 50mg every 6 hours. Keep taking the Pepcid 20mg twice a day. Add in a non-sedating antihistamine such as Zyrtec, Claritin, or Susan twice a day. Return if worsening symptoms. KERVIN ROGER MD Apr 20, 2018 03:48
[2018-04-20] MEDS ORDERED: methylPREDNIS SUCC 125 MG/2ML IVP ONE (03:55)
[2018-04-20] MEDS ORDERED: FAMOTIDINE(*) 20MG/50ML PREMIX 50 ML IVPB ONE (03:55)
[2018-04-20] MEDS ORDERED: diphenhydrAMINE 50 MG/ML VIAL IVP ONE (03:55)
[2018-04-20] MEDS ORDERED: DIPH-740 PO (04:21)
[2018-04-20] MEDS ORDERED: FAMO20TA28 PO (04:21)
[2018-04-20 05:12] LABS: PLATELET COUNT, AUTOMATED 336 K/uL (150-450)
[2018-04-20] MEDS ORDERED: DEXAMETHASONE SOD PHOS 10MG/ML IVP ONE (05:20)
[2018-04-20] MEDS ORDERED: EPINEPHrine 0.3 MG SYR IM ONLY ONE (05:25)
[2018-04-20 06:30] VITALS: BP 130/64
[2018-04-20] MEDS ORDERED: METH4TAB66 PO (06:32)
[2018-04-21] MEDS ORDERED: LORA10CA3 PO (04:21)
[2018-04-21] MEDS ORDERED: CETI10CA8 PO (08:50)
[2018-04-21] MEDS ORDERED: EPIN0.3P15 IM (08:50)
== END 2018-04-20 06:42 | disposition home or self-care (01) ==
LOC: ER 03:43
DX: L50.9 Urticaria, unspecified (principal)
CPT/HCPCS: 36415; 85025; 85651; 96374; 96375; 99283; J0171; J1100; J1200; J2930; J3490; 82040; 82247; 82310; 82374; 82435; 82565; 82947; 84075; 84132; 84155; 84295; 84450; 84460; 84520

== ENCOUNTER 2018-04-21 03:58 | Emergency (ER) | payer OTHER ==
[~2018-04-21 03:58] MED LIST changes: +DIPH-740 PO; +FAMO20TA28 PO; +METH4TAB66 PO
[2018-04-21] MEDS ORDERED: ANAPHYLAXIS KIT 1 EA ONE (04:06)
[2018-04-21] MEDS ORDERED: LORA10CA3 PO (04:21)
[2018-04-21] MEDS ORDERED: EPINEPHrine 0.3 MG SYR IM ONLY ONE (04:35)
[2018-04-21] MEDS ORDERED: NS(*) 0.9% 1000 ML BAG 1,000 ML IV ONE (04:35)
[2018-04-21] MEDS ORDERED: FAMOTIDINE(*) 20MG/50ML PREMIX 50 ML IVPB ONE (04:35)
[2018-04-21] MEDS ORDERED: methylPREDNIS SUCC 125 MG/2ML IVP ONE (04:35)
[2018-04-21] MEDS ORDERED: diphenhydrAMINE 50 MG/ML VIAL IVP ONE (04:35)
--- NOTE | 2018-04-21 06:05 | ER Report ---
History and Physical Time Seen By MD: 04:18 Hx. of Stated Complaint: PT WAS SEEN IN ER LAST NIGHT FOR ALLERGIC REACTION OF UNKOWN ETIOLOGY. PT BEGAN HAVING FACIAL SWELLING AND THROAT TIGHTNESS DISPITE TAKING HER PRESCRIBED MEDICATIONS (KERVIN ABAD MD) Time Seen By MD: 08:03 (EZEQUIEL LOMELI DO) HPI/ROS CHIEF COMPLAINT: recurrent allergic reaction HISTORY OF PRESENT ILLNESS: This is a 42 year old female. She has been having problems with allergic reaction symptoms for the last 4 days now. She has urticarial lesions on her arms, and somewhat on back and abdomen/chest area. Also on neck and face with angioedema type symptoms with swelling of her upper lip last night and tonight with swelling all around her mouth and some swelling around eyes as well. Very itchy all over her body. Few lesions on legs. Some lesions on arms tonight more nodular and tender. No open lesions, blisters, scaling, or skin sloughing. She has a small area inside her lower right lip that is a little puffy, but no ulcers or sores. She has throat tightness and trouble swallowing associated with this. Recent history of taking Bactrim for a urinary tract infection about 3 weeks ago , had a reaction to the Bactrim DS after taking it for a couple of days, which involved having some urticarial lesions on her arms and hands as well as itching , similar to the current reaction. The Bactrim was stopped and is now part of her allergy list as noted above. She was started on another antibiotic, and she was able to pull up the name on the [employer], [employer], and finished the course of that on April 14. Had a rash start again on the 17 of April with urticaria on the extremities again, and swelling of the left upper lip. Given oral Prednisone, Benadryl and Pepcid at the ER visit here the next day on April 18, which seemed to help. Was given Prednisone 20mg twice a day and continued on Benadryl and Pepcid. I saw here last night (2 days after the first ER visit) and her reaction seemed to be worse than the previous one. We started and IV and gave Solu-Medrol, Pepcid and Benadryl IV. This did not touch the reaction. Gave Decadron 10mg IV. The gave Epinephrine 0.3mg IM injection, which finally cleared the reaction. Switched to Medrol DosePack and continued on Benadryl, Claritin, and Pepcid. Had recurrent symptoms tonight that started at about 1800 and then slowly worsened until she came in tonight. She has no history of allergic reactions other than that noted above. No new chemicals or foods noted. No unusual travel or other exposures. Labs last night showed a mildly elevated white blood cell count of 12.3 with a left shift of neutrophils of 84.2%. H&H was 10.8 and 34.1 and normal platelet count of 338. Erythrocyte sedimentation rate was normal at 6. Comprehensive metabolic panel was normal as well. (KERVIN ABAD MD) HPI/ROS Please see Dr. Abad note (EZEQUIEL LOMELI DO) Allergies: Coded Allergies: Sulfa (Sulfonamide Antibiotics) (Verified Allergy, Intermediate, 04/18/18) Home Meds Active Scripts Cetirizine Hcl (ZYRTEC) 10 Mg Capsule, 10 MG PO BID for 7 Days, #30 CAPSULE Prov:EZEQUIEL LOMELI DO 04/21/18 Epinephrine (EPIPEN 2-CHAPARRO) 0.3 Mg/0.3 Ml Pen.injctr, 0.3 MG IM ONCE Y for ALLERGY SYMPTOMS, #1 PACK Prov:EZEQUIEL LOMELI DO 04/21/18 Methylprednisolone (METHYLPREDNISOLONE) 4 Mg Tab.ds.pk, 4 MG PO DIRECTED, #1 PACK 0 Refills Prov:KERVIN ABAD MD 04/20/18 Prednisone (PREDNISONE) 20 Mg Tablet, 20 MG PO BID for 5 Days, #10 TAB Prov:DON SANCHEZ MD 04/18/18 Reported Medications Loratadine (CLARITIN) 10 Mg Capsule, 10 MG PO BID, CAPSULE 04/21/18 Famotidine (PEPCID) 20 Mg Tablet, 20 MG PO BID, #10 TAB 04/20/18 Diphenhydramine Hcl (BENADRYL) 25 Mg Capsule, 25 MG PO Q6-8H, CAPSULE 04/20/18 Discontinued Scripts Oxycodone/Acetaminophen (OXYCODONE/ACETAMINOPHEN 5MG/325 MG) 5 Mg/325 Mg Tab, 1- 2 TAB PO Q4H Y for PAIN, #14 TAB 0 Refills Prov:SARAI GARZA MD 03/23/18 Ibuprofen (IBUPROFEN) 800 Mg Tablet, 800 MG PO Q8H Y for PAIN, #30 TAB 0 Refills Prov:SARAI GARZA MD 03/23/18 Reviewed Nurses Notes: Yes (KERVIN ABAD MD) Hx Smoking: No Smoking Status: Never Smoker Exposure to Second Hand Smoke?: No Hx Substance Use Disorder: No Hx Alcohol Use: No (KERVIN ABAD MD) Constitutional Vital Sign - Last 24 Hours 04/21/18 04/21/18 04/21/18 04/21/18 04:01 04:16 04:53 05:08 Temp 99.0 Pulse 65 59 83 Resp 14 B/P (MAP) 151/68 (95) 151/68 117/65 (82) Pulse Ox 100 100 100 O2 Delivery Room Air 04/21/18 04/21/18 04/21/18 04/21/18 05:23 05:28 05:30 06:00 Pulse 80 81 B/P (MAP) 122/67 (85) 119/63 (81) Pulse Ox 96 96 04/21/18 04/21/18 04/21/18 04/21/18 06:28 06:30 06:35 07:00 Pulse 95 99 B/P (MAP) 116/57 (76) 111/61 (78) Pulse Ox 96 97 04/21/18 04/21/18 04/21/18 04/21/18 07:05 07:30 07:35 08:00 Pulse 90 83 B/P (MAP) 109/60 (76) 102/69 (80) Pulse Ox 96 04/21/18 04/21/18 04/21/18 04/21/18 08:05 08:10 08:30 08:40 Pulse 84 79 66 B/P (MAP) 106/68 (81) Pulse Ox 97 95 95 04/21/18 08:56 B/P (MAP) 110/75 (87) Intake and Output 04/21/18 04/21/18 04/22/18 14:59 22:59 06:59 Intake Total 1000 ml Balance 1000 ml (EZEQUIEL LOMELI DO) Physical Exam General Appearance: Alert, anxious and in tears because of continued problems. Eyes: Pupils equal and round, no injection, extraocular movements are intact. ENT: Has some swelling of the lips. Some areas inside the bottom lip that are a little more prominent, that look like little papules, but no ulcers or sores noted. Posterior oropharynx is normal without any swelling noted and no ulcers or sores, as is the palate. No erythema. Moist mucous membranes. Neck: Neck is supple and non tender. Respiratory: Chest is non tender, lungs are clear to auscultation. Cardiac: regular rate and rhythm Gastrointestinal: Abdomen is soft and non tender and nondistended. Musculoskeletal: Extremities have full range of motion. Some tenderness in the arms associated with the rash. Neuro: normal sensation in the extremities. No facial droop or deficits noted. Skin: Urticarial rash throughout the arms that blanches. Confluent throughout with some areas that feel a little nodular on the forearms. Scattered areas on trunk. A few on the legs as well. Diffuse puritis. No other skin lesions noted. DIFFERENTIAL DIAGNOSIS: After history and physical exam differential diagnosis was considered for skin rash which again appears allergic in nature, but not responding well to treatment. (KERVIN ABAD MD) Physical Exam Please see Dr. Abad note (EZEQUIEL LOMELI DO) Medical Decision Making ED Course/Re-evaluation Clinical Indication for ER IV: Hydration, IV Access ED Course Gave IM Epinephrine 0.3mg right away and also an IV with 1000cc NS, Pepcid 20mg IV, Solu-Medrol 125mg IV and Benadryl 50mg IV. Rash started to resolve and over about an hours time almost completely cleared up. Still with some lesions on her arms, but very faint now. No further swelling of the face. No feeling of tight throat or trouble swallowing or shortness of breath. (KERVIN ABAD MD) ED Course I took over care of this patient from Dr. Abad, the night doctor. Patient was tolerating treatment well after receiving epinephrine. This is the patient's 3rd visit to the emergency department over the past several days with worsening symptoms. Patient is well-appearing at time of reevaluation. I discussed her case with Dr. Gonzalez who recommended the following. Take Zyrtec 10 mg twice daily until able to follow up with allergy clinic. She may increase this dose to 20 mg twice a day as maximum. Patient was prescribed epinephrine pen, and advised to inject into anterior thigh if she develops shortness breath, increased swelling, difficulty breathing, difficulty swallowing or clearing secretions, or facial swelling. She was advised to continue taking Pepcid as prescribed. She was advised to continue and finish her Medrol dosepak. She was advised to hold off on taking any antibiotics until further notice. She was advised to call [phone] to set up an appointment for follow-up care with the allergy clinic. Patient voiced understanding was hemodynamically stable in no acute respiratory distress at time of discharge. Decision to Disposition Date: Apr 21, 2018 Decision to Disposition Time: 08:55 (EZEQUIEL LOMELI ) Depart Departure Latest Vital Signs Vital Signs Date Time Temp Pulse Resp B/P (MAP) Pulse Ox O2 Delivery O2 Flow Rate FiO2 04/21/18 08:56 110/75 (87) 04/21/18 08:40 66 95 04/21/18 04:16 99.0 14 Room Air (EZEQUIEL LOMELI DO) Impression: Primary Impression: Urticaria Additional Impression: Allergic reaction Condition: Improved Disposition: HOME OR SELF-CARE Referrals: SARAI GARZA MD (PCP) New Scripts Cetirizine Hcl (ZYRTEC) 10 Mg Capsule 10 MG PO BID for 7 Days, #30 CAPSULE Prov: EZEQUIEL LOMELI DO 04/21/18 Epinephrine (EPIPEN 2-CHAPARRO) 0.3 Mg/0.3 Ml Pen.injctr 0.3 MG IM ONCE Y for ALLERGY SYMPTOMS, #1 PACK Prov: EZEQUIEL LOMELI 04/21/18 Patient Instructions: Epinephrine (By injection) Additional Instructions: Please take Zyrtec 10 mg twice daily until you're able to follow up with allergy clinic. You may increase the dose to 20 mg twice daily as a maximum dose if you develop worsening symptoms. You have been prescribed epinephrine pen , please inject into the lateral thigh as prescribed if you develop shortness breath, increased swelling, difficulty breathing, difficulty swallowing or clearing secretions, or facial swelling. Please continue taking Pepcid as prescribed. Please continue and finish your Medrol dosepak. Please hold off on taking any antibiotics until further notice. I discussed her case with Dr. Gonzalez, please call [phone] to set up an appointment for follow-up care. Please return if symptoms worsen or fail to improve as you may need inpatient therapy. Problem Qualifiers KERVIN ABAD MD Apr 21, 2018 06:05 EZEQUIEL LOMELI DO Apr 21, 2018 08:14
[2018-04-21] MEDS ORDERED: CETI10CA8 PO (08:50)
[2018-04-21] MEDS ORDERED: EPIN0.3P15 IM (08:50)
[2018-04-21 08:56] VITALS: BP 110/75
[2018-04-22] MEDS ORDERED: ANAPHYLAXIS KIT 1 EA ONE (05:33)
== END 2018-04-21 09:05 | disposition home or self-care (01) ==
LOC: ER 04:02
DX: L50.0 Allergic urticaria (principal); T37.0X5A Adverse effect of sulfonamides, initial encounter; Z79.899 Other long term (current) drug therapy
CPT/HCPCS: 96372; 96374; 96375; 99284; J0171; J1200; J2930; J3490; J7030

== ENCOUNTER 2018-04-22 05:30 | Emergency (ER) | payer OTHER ==
[~2018-04-22 05:30] MED LIST changes: +CETI10CA8 PO; +EPIN0.3P15 IM; +LORA10CA3 PO
--- NOTE | 2018-04-22 05:53 | ER Report ---
History and Physical Time Seen By MD: 05:43 Hx. of Stated Complaint: MOHAMUD HAVING ALLERGIC REACTION, STARTED AT 0400, TOOK HER EPI P3EN, PECID, ZYRTEC, CLARITIN AND STEROID FROM STEROID PACK. (KERVIN ABAD MD) Time Seen By MD: 07:21 (EZEQUIEL LOMELI DO) HPI/ROS CHIEF COMPLAINT: Allergic reaction, recurrent HISTORY OF PRESENT ILLNESS: This is a 42-year-old female. Ongoing recurrent allergic reactions. Similar reaction this morning despite the increased medications including the increased her tach. Reaction started at 0400 hours. Took her EpiPen about 0530 hours. Urticarial lesions on her trunk and arms neck and face. She had the similar findings of difficulty swallowing this morning. Reaction is starting to resolve after the EpiPen. (KERVIN ABAD MD) HPI/ROS Please see Dr. Abad note (EZEQUIEL LOMELI DO) Allergies: Coded Allergies: Sulfa (Sulfonamide Antibiotics) (Verified Allergy, Intermediate, 04/22/18) Home Meds Active Scripts Cetirizine Hcl (ZYRTEC) 10 Mg Capsule, 10 MG PO BID for 7 Days, #30 CAPSULE Prov:EZEQUIEL LOMELI DO 04/21/18 Epinephrine (EPIPEN 2-CHAPARRO) 0.3 Mg/0.3 Ml Pen.injctr, 0.3 MG IM ONCE Y for ALLERGY SYMPTOMS, #1 PACK Prov:EZEQUIEL LOMELI DO 04/21/18 Methylprednisolone (METHYLPREDNISOLONE) 4 Mg Tab.ds.pk, 4 MG PO DIRECTED, #1 PACK 0 Refills Prov:KERVIN ABAD MD 04/20/18 Prednisone (PREDNISONE) 20 Mg Tablet, 20 MG PO BID for 5 Days, #10 TAB Prov:DON SANCHEZ MD 04/18/18 Reported Medications Loratadine (CLARITIN) 10 Mg Capsule, 10 MG PO BID, CAPSULE 04/21/18 Famotidine (PEPCID) 20 Mg Tablet, 20 MG PO BID, #10 TAB 04/20/18 Diphenhydramine Hcl (BENADRYL) 25 Mg Capsule, 25 MG PO Q6-8H, CAPSULE 04/20/18 Discontinued Scripts Oxycodone/Acetaminophen (OXYCODONE/ACETAMINOPHEN 5MG/325 MG) 5 Mg/325 Mg Tab, 1- 2 TAB PO Q4H Y for PAIN, #14 TAB 0 Refills Prov:SARAI GARZA MD 03/23/18 Ibuprofen (IBUPROFEN) 800 Mg Tablet, 800 MG PO Q8H Y for PAIN, #30 TAB 0 Refills Prov:SRAAI GARZA MD 03/23/18 Reviewed Nurses Notes: Yes (KERVIN ABAD MD) Hx Smoking: No Smoking Status: Never Smoker Exposure to Second Hand Smoke?: No Hx Substance Use Disorder: No Hx Alcohol Use: No (KERVIN ABAD MD) Constitutional Vital Sign - Last 24 Hours 04/22/18 04/22/18 04/22/18 04/22/18 05:34 05:45 06:00 06:15 Temp 98.7 Pulse 89 89 81 80 Resp 28 B/P (MAP) 151/134 90/64 (73) Pulse Ox 100 100 100 100 O2 Delivery Room Air 04/22/18 04/22/18 04/22/18 04/22/18 06:20 06:30 06:35 06:40 Pulse 77 85 90 B/P (MAP) 104/55 (71) Pulse Ox 96 93 100 04/22/18 04/22/18 04/22/18 04/22/18 06:45 07:00 07:15 07:20 Pulse 84 80 77 73 B/P (MAP) 106/51 (69) Pulse Ox 95 94 91 94 04/22/18 04/22/18 04/22/18 04/22/18 07:30 07:35 07:50 08:00 Pulse 74 84 B/P (MAP) 110/58 (75) 94/59 (71) Pulse Ox 93 99 04/22/18 08:05 Pulse 59 Pulse Ox 94 (LOMELI,EZEQUIEL S DO) Physical Exam General Appearance: The patient is alert, but having anxiety and distress because of the situation. Eyes: Pupils equal and round no injection. ENT: Normal oral mucosa. Moist mucous membranes. Normal posterior oropharynx. Neck: Neck is supple and non tender. Respiratory: Lungs are clear to auscultation. Cardiac: regular rate and rhythm Skin: Urticarial lesions on arms, trunk. some on face. No swelling of lips/mouth , but patient reported that this was the case prior to EpiPen. DIFFERENTIAL DIAGNOSIS: After history and physical exam differential diagnosis was considered for recurrent allergic reaction/anaphylactic reaction (KERVIN ABAD MD) Physical Exam Please see Dr. Abad note (EZEQUIEL LOMELI DO) Medical Decision Making ED Course/Re-evaluation ED Course Patient is a 42-year-old female here with complaints of a suspected allergic reaction of unclear etiology. Patient reportedly had a fever doses of Bactrim back on the 2nd of this month for a UTI and then subsequently was treated and switched to Macrobid after allergic reaction with an urticarial rash. She subsequently developed recurrence of her systems over the past several days 3 times. I had seen the patient yesterday morning after she had a recurrence of her symptoms overnight which required epinephrine. Patient had complete resolution of her symptoms after epinephrine at that time. At approximately 4:00 this morning she developed difficulty breathing, significant facial swelling and she administered her EpiPen which she was sent home with yesterday. Patient reports that she had a slower resolution of her symptoms this morning after administration of epinephrine and still has left upper lip swelling. Patient is hemodynamically stable, afebrile. I discussed the patient with Dr. Méndez, the hospitalist who recommended transfer for further care. I discussed the patient with Dr. Kelly from [facility] who accepted the patient in transfer. Patient opted for personal vehicle transfer and still has one epi pen in case her symptoms recur. Patient was stable at time of transfer. Decision to Disposition Date: Apr 22, 2018 Decision to Disposition Time: 08:19 Transfer Facility [facility]- Dr. Kelly is the accepting doctor (EZEQUIEL LOMELI DO) Depart Departure Latest Vital Signs Vital Signs Date Time Temp Pulse Resp B/P (MAP) Pulse Ox O2 Delivery O2 Flow Rate FiO2 04/22/18 08:05 59 94 04/22/18 08:00 94/59 (71) 04/22/18 05:34 98.7 28 Room Air (EZEQUIEL LOMELI DO) Impression: Primary Impression: Allergic reaction Condition: Improved Disposition: XFER TO [facility]ARE [facility] ([facility]) Referrals: SARAI GARZA MD (PCP) Patient Instructions: General Allergic Reaction (ED) Additional Instructions: Please proceed directly to [facility] for further care. Please administer EpiPen if you develop difficulty breathing, worsening facial swelling, shortness of breath KERVIN ABAD MD Apr 22, 2018 05:53 EZEQUIEL LOMELI DO Apr 22, 2018 07:22
[2018-04-22] MEDS ORDERED: methylPREDNIS SUCC 125 MG/2ML IVP ONE (05:55)
[2018-04-22] MEDS ORDERED: FAMOTIDINE(*) 20MG/50ML PREMIX 50 ML IVPB ONE (05:55)
[2018-04-22] MEDS ORDERED: diphenhydrAMINE 50 MG/ML VIAL IVP ONE (05:55)
[2018-04-22 09:30] VITALS: BP 110/47
== END 2018-04-22 09:40 | disposition short-term general hospital (02) ==
LOC: ER 05:35
DX: T78.40XA Allergy, unspecified, initial encounter (principal)
CPT/HCPCS: 96374; 96375; 99284; J1200; J2930; J3490

== ENCOUNTER → 2018-11-02 | Outpatient (CLI) | payer OTHER ==
--- NOTE | 2018-11-03 09:12 | RADIOLOGY IMAGING REPORT ---
FAC[place] [facility] [place]IENT NAME: LIVE LEE : [id number] MR: [id number] V: [id number] EXAM DATE: [id number] ORDERING PHYSICIAN: SARAI GARZA TECHNOLOGIST: Sara Cummings PROCEDURE:RIGHT DIGITAL DIAGNOSTIC MAMMOGRAM WITH CAD ASSISTED INTERPRETATION & 3D TOMOSYNTHESIS COMPARISON:Prior mammograms 04/05/18, 03/14/18, 02/23/18. INDICATIONS:6 mo/fu FINDINGS: The Right breast is heterogeneously dense which can obscure small masses. There is a loosely grouped collection of round calcifications in the upper outer quadrant of the Right breast with an adjacent stereotactic biopsy clip. The number of calcifications are slightly decreased when compared to the prior study. No other interval is changed. DIAGNOSTIC CATEGORY 3--PROBABLY BENIGN FINDING. RECOMMENDATIONS: SIX MONTH FOLLOW-UP DIAGNOSTIC MAMMOGRAM: BILATERAL BREASTS. IMPRESSION: BIRADS 3: Probably benign finding. A 6 month follow-up bilateral mammogram is recommended at which time the patient will be due for her annual mammogram. Dictated by: Erendira Beasley M.D. on 11/02/2018 at 10:37 Transcribed by: NICANOR on 11/02/2018 at 11:12 Approved by: Erendira Beasley M.D. on 11/03/2018 at 9:10 [facility]
== END ==
LOC: MAMO 00:17
PROVIDERS: ATTEND Obstetrics & Gynecology
DX: R92.1 Mammographic calcification found on diagnostic imaging of breast (principal)
CPT/HCPCS: 77061; 77065

== ENCOUNTER → 2019-04-18 | Outpatient (CLI) | payer OTHER ==
--- NOTE | 2019-04-24 10:55 | RADIOLOGY IMAGING REPORT ---
FACILITY: [facility] [place] PATIENT NAME: LIVE LEE : [id number] MR: [id number] V: [id number] EXAM DATE: ORDERING PHYSICIAN: SARAI GARZA TECHNOLOGIST: Hailey England PROCEDURE:BILATERAL DIAGNOSTIC DIGITAL MAMMOGRAM WITH CAD ASSISTED INTERPRETATION & 3D TOMOSYNTHESIS REASON FOR STUDY: 6 month follow up FAMILY HISTORY OF BREAST CANCER: Sister in her 20's & a Maternal Aunt BREAST PROCEDURES/TREATMENTS: Benign stereotactic biopsy Right breast COMPARISON STUDIES: Mammograms 11/02/18, 04/05/18, 03/14/18, 02/23/18 MAMMOGRAM VIEWS OBTAINED: Bilateral 2D & 3D full field CC & MLO projections & a 2D & 3D spot compression view in the Left CC projection. BREAST DENSITY: The breasts are heterogeneously dense which can obscure small masses. MAMMOGRAM FINDINGS: The parenchymal pattern has remained stable allowing for difference in mammographic technique & patient positioning. There is a stereotactic biopsy clip in the upper outer quadrant of the Right breast in the middle third. There are adjacent round calcifications that appear stable when compared to the most recent mammogram. DIAGNOSTIC CATEGORY 2--BENIGN FINDING. RECOMMENDATIONS: ROUTINE MAMMOGRAM AND CLINICAL EVALUATION. IMPRESSION: BIRADS 2: Benign finding. Dictated by: Erendira Beasley M.D. on 04/18/2019 at 16:07 Transcribed by: MAURO on 04/24/2019 at 10:24 Approved by: Erendira Beasley M.D. on 04/24/2019 at 10:50 [facility]
== END ==
LOC: MAMO 04:01
PROVIDERS: ATTEND Obstetrics & Gynecology
DX: R92.8 Other abnormal and inconclusive findings on diagnostic imaging of breast (principal); Z80.3 Family history of malignant neoplasm of breast
CPT/HCPCS: 77062; 77066